=== PATIENT | female | born 1955 | race Caucasian/White ===

== ENCOUNTER 2016-09-05 05:36 | Inpatient (IN) | payer OTHER ==
[2016-08-31 19:59] LABS: BASOPHILS 0.3 %; BASOPHILS ABSOLUTE 0.02 10/3/uL (0.0-0.16); EOSINOPHILS 2.2 %; EOSINOPHILS ABSOLUTE 0.13 10/3/uL (0.0-0.53); HEMATOCRIT 35.9 % (36.0-48.0); HEMOGLOBIN 11.4 g/dL (12.0-16.0); LYMPHOCYTES 26.1 %; LYMPHOCYTES ABSOLUTE 1.57 10/3/uL (0.67-4.30); MEAN CORPUS HGB CONC 31.8 g/dL (32.0-36.0); MEAN CORPUSCULAR HEMOGLOB 26.3 pg (26.0-34.0); MEAN CORPUSCULAR VOLUME 82.7 fL (80-100); MEAN PLATELET VOLUME 11.1 fL (9.2-13.0); MONOCYTES 13.1 %; MONOCYTES ABSOLUTE 0.79 10/3/uL (0.21-1.20); NEUTROPHILS 58.3 %; PLATELET COUNT 397 10/3/uL (150-400); RBC DISTRIBUTION WIDTH 14.1 % (12.0-16.0); RED CELL COUNT 4.34 10/6/uL (4.0-5.6)
[2016-08-31 20:01] LABS: MANUAL DIFF NO %
[2016-08-31 20:12] LABS: BUN (BLOOD UREA NITROGEN) 12 MG/DL (6-23); CALCIUM, SERUM 9.5 MG/DL (8.5-10.4); CHLORIDE, SERUM 107 MMOL/L (96-112); CO2 (CARBON DIOXIDE) 28 MMOL/L (24-34); CREATININE 0.82 MG/DL (0.55-1.02); GFR AFRICAN AMERICAN 90 ML/MIN (>=60); GFR NON AFRICAN AMERICAN 77 ML/MIN (>=60); GLUCOSE, SERUM 82 MG/DL (60-99); POTASSIUM, SERUM 4.7 MMOL/L (3.5-5.3); SODIUM, SERUM 141 MMOL/L (135-148)
--- NOTE | ~2016-09-05 | DS ---
Discharge Summary [facility] [address] [place]. [address] NAME: REBECCA BURT : 55 STATUS : DIS IN PAT#: [id number] AGE: 61 ADM/REG DATE : 09/05/16 MR#: [id number] REPORT SERV DATE: 09/17/16 DICTATED BY: JOE NGUYỄN DATE: 09/16/16 REPORT STATUS : Draft TRANSCRIBED BY: AILYN DATE: 09/16/16 Data Collection from hospitalization DISCHARGE DIAGNOSIS(ES): 1. Large uterine mass, leiomyosarcoma. 2. Hypertension. 3. Hypothyroidism. 4. Gastroesophageal reflux disease. 5. Asthma. CONSULTATIONS: None. PROCEDURES PERFORMED: Initially laparoscopic converted to exploratory laparotomy with total abdominal hysterectomy; bilateral salpingo-oophorectomy with pelvic lymph node sampling with radical dissection for removal of tumor; extensive lysis of adhesions; omentectomy; suture of the rectosigmoid colon for removal of adhesions, 09/05/2016. PATHOLOGY: 1. Uterus with cervix and bilateral adnexa; hysterectomy with bilateral salpingectomy; leiomyosarcoma arising in the uterine corpus; omentum, subtotal omentectomy, focal reactive changes, no tumor seen. 2. Left pelvic lymph node excision, 0 of 1 node involved by tumor; rectosigmoid adhesions excision, leiomyosarcoma, invading into the subserosal soft tissue of the rectosigmoid. MEDICATIONS: Levothyroxine sodium 150 mcg daily, Toprol-XL 100 mg every morning, Prilosec 20 mg daily, MiraLAX powder one packet twice daily, Flonase one spray each nostril daily as needed, Mylicon 40 mg as needed, and [employer] 5/325 one every six hours as needed. CONDITION AT DISCHARGE: Upon discharge, she did appear to be doing well and had no complaints. DISPOSITION: She was discharged home to continue a regular diet with activity as tolerated. She was to follow up with me in the office on 09/19/2016, follow up with her primary care physician as needed. HOSPITAL COURSE: This 61-year-old female had pelvic pain and had been found to have a large pelvic mass. There was a question of whether it was a fibroid. She was admitted for surgery and further evaluation. Upon admission to the hospital, she had been taken to the operating room where she did undergo the above procedure. She tolerated this well and was transferred to the recovery room. On postop day #1, her pain was moderately controlled. She had no nausea or vomiting. Her vital signs were stable and she was afebrile. She did appear to be doing well postoperatively. Her [place] catheter was removed, and she was encouraged to ambulate. On postop day #2, her pain was under better control and she tolerated a clear liquid diet. Her hemoglobin was at 8.1, and her blood pressure was okay. Her abdomen was noted to be mildly distended and appropriately tender. She did appear to be doing well postoperatively. On postop day #3, she did continue to do well and was tolerating diet advancement well. She did undergo transfusion with two units of packed red blood cells secondary to anemia and did appear to be doing well following this. She was Discharge Summary [address] [place]. [address] NAME: REBECCA BURT : 55 STATUS : DIS IN PAT#: [id number] AGE: 61 ADM/REG DATE : 09/05/16 MR#: [id number] REPORT SERV DATE: 09/17/16 DICTATED BY: JOE NGUYỄN DATE: 09/16/16 REPORT STATUS : Draft TRANSCRIBED BY: MODL DATE: 09/16/16 continued on postoperative care. On postop day #4, she tolerated a full liquid diet without difficulty, and her BERTO drain was removed. Her diet was therefore advanced to a regular diet. She did remain in stable condition and was then discharged later that same day with the above instructions. Information collected by: [employer] I submit the above information as my discharge summary. SANNA/STEPHANIEL Joe Nguyễn M.D. / [id number] CC: Joey Delaney
--- NOTE | ~2016-09-05 | OP ---
Record Of Operation [facility] [address] [place]. [address] NAME: REBECCA BURT : 55 STATUS : ADM IN PAT#: [id number] AGE: 61 ADM/REG DATE : 09/05/16 MR#: [id number] REPORT SERV DATE: 09/06/16 DICTATED BY: JOE NGUYỄN DATE: 09/06/16 REPORT STATUS : Draft TRANSCRIBED BY: MODSarahi DATE: 09/06/16 DATE OF PROCEDURE: 09/05/2016 PREOPERATIVE DIAGNOSIS: Large abdominopelvic mass. POSTOPERATIVE DIAGNOSIS: Large uterine mass suspect leiomyosarcoma. PROCEDURES: 1. Initially laparoscopic converted to exploratory laparotomy with total abdominal hysterectomy, bilateral salpingo-oophorectomy with pelvic lymph node sampling, CPT code 72026, with radical dissection for removal of tumor. 2. Extensive lysis of adhesions, CPT code 69321. 3. Omentectomy, CPT code 12758. 4. Suture of the rectosigmoid colon for removal of adhesions. [employer]: Radha. ESTIMATED BLOOD LOSS: 2 L. FLUIDS: 3 L of crystalloid, 500 mL of albumin, and 3 units of packed red blood cells. COMPLICATIONS: None. FINDINGS AND INDICATIONS: This is a 61-year-old female who was brought to the operating room with a large solid abdominopelvic mass thought to be a fibroid. Intraoperatively, this mass appeared to be necrotic. Initially, a laparoscope was placed. Any manipulation of this mass caused bleeding. A decision was therefore made to proceed with exploratory laparotomy through a midline incision. The uterus was removed intact, although again during times of this procedure with manipulation of the uterus, portions of the tumor did fall off and were removed intra-abdominally. The mass was consistent with a necrotic mass. The mass was adherent to the rectosigmoid colon and omentum, and extensive lysis of adhesions was undertaken. All areas that were touching the mass were essentially removed. Portions of the mesentery of the rectosigmoid colon were excised and then sutured for hemostasis and a sub-gastric omentectomy was performed. The omentum was draped over the mass at the initial time of the procedure. At the completion of the procedure, all gross evidence of disease was removed. There was no evidence of disease in the remainder of the abdominal cavity. There was one enlarged lymph node noted at the bifurcation of the internal and external iliac on the left that was removed. PROCEDURE IN DETAIL: The patient was taken to the operating room, where she was placed in supine position for administration of general anesthesia. A JASMYN uterine manipulator was placed through the uterine cervix and out the fundus, and a ALTA ring was sutured to the patient's cervix. Our attention was then turned towards the anterior abdominal wall, where an incision was made approximately 27 cm above the pubic symphysis and taken down to the underlying layer of fascia. The fascia was grasped with two sutures of 0 Vicryl, tented up, and entered sharply. The peritoneum was then tented up and entered sharply. Then a Record Of Operation [address] [place]. [address] NAME: REBECCA BURT : 55 STATUS : ADM IN PAT#: [id number] AGE: 61 ADM/REG DATE : 09/05/16 MR#: [id number] REPORT SERV DATE: 09/06/16 DICTATED BY: JOE NGUYỄN DATE: 09/06/16 REPORT STATUS : Draft TRANSCRIBED BY: AILYN DATE: 09/06/16 laparoscope was placed. The abdominal cavity was insufflated. Two additional 8 mm trocars were placed, one additional 12 mm trocar was placed. The patient's abdominal cavity was explored via the laparoscopy and the above findings noted. With any manipulation, bleeding was noted, therefore a decision was made to proceed to laparotomy. Laparoscopic instruments were removed. A midline incision was made from above the umbilicus to the pubic symphysis and carried down to the underlying layer of fascia. The fascia was incised, rectus muscles , the peritoneum tented up and entered sharply. The peritoneal incision was extended superiorly and inferiorly with good visualization of the bowel and bladder. A Bookwalter retractor was placed into the incision and the bowel was packed with moist laparotomy sponges. Again, there was extensive adhesions of the omentum and the rectosigmoid colon. These adhesions were taken down with sharp dissection. The retroperitoneal spaces were opened via the round ligaments, which were grasped with bipolar cautery. The ureters were displaced laterally to avoid any injury and a radical pelvic dissection was performed to remove the tumor in total. The gonadal vessels were isolated. Hemoclips were placed to ensure long-term hemostasis. They were then grasped with two clamps, transected, and suture ligated using 0 Vicryl suture. The uterine arteries were identified at their origin and hemoclips were placed to ensure long-term hemostasis. They were then isolated at the level of the cervix, grasped with two curved Zeppelin clamps, transected, and suture ligated using 0 Vicryl. Anteriorly, a bladder flap was created and taken down to a level well below the cervix. Again, the ureters were visualized during the entire procedure and displaced laterally. The uterosacral cardinal complexes were then grasped with two straight Zeppelin clamps, transected, and suture ligated using 0 Vicryl suture. Additional lysis of adhesions was undertaken of the rectosigmoid colon and the vaginal cuff angles were then grasped with two curved Zeppelin clamps, and the uterus, cervix, and both ovaries were amputated and handed off the field with the above findings noted. The mesentery of the colon was then removed in total, which was touching the uterus to remove all evidence of gross adhesions of disease. This was then sutured using multiple sutures of 3-0 silk. The vaginal cuff was then closed with a running stitch of 0 Vicryl suture. Excellent hemostasis was assured. The pelvic lymph nodes were visualized and again on the left and enlarged lymph node was removed with sharp dissection and sent to Pathology and labeled appropriately. Using a combination of cautery and the LigaSure, a sub-colic omentectomy was performed again because the omentum was draped over the specimen. Both hemidiaphragms were visualized and palpated. The liver was also visualized and palpated. The spleen was visualized and palpated. The entire GI tract was run with no gross evidence of tumor in any of those areas. At the completion of the procedure, the abdominal cavity was irrigated with copious amounts of warm water. Evicel was placed onto the dissection bed to ensure long-term hemostasis. A BERTO drain was placed into the pelvis through one of the trocar sites. Both the 12 mm port and the initial port were closed with 0 Vicryl at the fascia, and the Bookwalter retractor was removed. The midline incision was closed with a running stitch of #1 PDS. The subcutaneous tissue was reapproximated using 2-0 Vicryl and skin was closed with a running subcuticular 4-0 Monocryl. At the completion of the procedure, the anesthesia was reversed. The patient was taken to the recovery room in stable condition. SD/MODL Record Of [facility] [address] [place] [address] NAME: REBECCA BURT : 55 STATUS : ADM IN [facility]#: [id number] AGE: 61 ADM/REG DATE : 09/05/16 MR#: [id number] REPORT SERV DATE: 09/06/16 DICTATED BY: JOE NGUYỄN DATE: 09/06/16 REPORT STATUS : Draft TRANSCRIBED BY: AILYN DATE: 09/06/16 Joe Nguyễn M.D. / [id number] CC: Joe Nguyễn M.D.
[~2016-09-05 05:36] MED LIST: FLONASE NAS; LEVOTHYROXIN150 MCG PO; MYLICON 40 MG T40 MG PO; NORCO1 TA1 PO; PRILOSEC OTC20 MG PO; TOPXL100 PO
[2016-09-05 15:53] LABS: BASOPHILS 0.1 %; BASOPHILS ABSOLUTE 0.01 10/3/uL (0.0-0.16); EOSINOPHILS 0 %; HEMATOCRIT 34.8 % (36.0-48.0); HEMOGLOBIN 11.8 g/dL (12.0-16.0); IMMATURE GRANULOCYTES 0.4 %; IMMATURE GRANULOCYTES ABSOLUTE 0.07 10/3/uL (0.0-0.11); LYMPHOCYTES 4.3 %; LYMPHOCYTES ABSOLUTE 0.79 10/3/uL (0.67-4.30); MEAN CORPUSCULAR VOLUME 82.7 fL (80-100); MEAN PLATELET VOLUME 10.9 fL (9.2-13.0); MONOCYTES 7.8 %; MONOCYTES ABSOLUTE 1.42 10/3/uL (0.21-1.20); NEUTROPHILS 87.4 %; PLATELET COUNT 328 10/3/uL (150-400); RBC DISTRIBUTION WIDTH 14.5 % (12.0-16.0); RED CELL COUNT 4.21 10/6/uL (4.0-5.6)
[2016-09-05 15:55] LABS: MANUAL DIFF NO %; MEAN CORPUS HGB CONC 33.9 g/dL (32.0-36.0); WHITE BLOOD CELLS 18.3 10/3/uL (4.5-10.5)
[2016-09-05 16:03] LABS: INTERNATIONAL NORMAL RATI 1.3 UNITS (-); PROTIME (NOT ORD) 16.4 SEC (12.0-14.5)
[2016-09-05 16:04] LABS: BUN (BLOOD UREA NITROGEN) 12 MG/DL (6-23); CHLORIDE, SERUM 110 MMOL/L (96-112); CREATININE 0.86 MG/DL (0.55-1.02); GFR AFRICAN AMERICAN 85 ML/MIN (>=60); GFR NON AFRICAN AMERICAN 73 ML/MIN (>=60); POTASSIUM, SERUM 4.1 MMOL/L (3.5-5.3); SODIUM, SERUM 136 MMOL/L (135-148)
[2016-09-05 16:05] LABS: CALCIUM, SERUM 8.2 MG/DL (8.5-10.4); CO2 (CARBON DIOXIDE) 21 MMOL/L (24-34); GLUCOSE, SERUM 165 MG/DL (60-99)
[2016-09-06 04:31] LABS: INTERNATIONAL NORMAL RATI 1.3 UNITS (-); PROTIME (NOT ORD) 15.8 SEC (12.0-14.5)
[2016-09-06 04:36] LABS: BUN (BLOOD UREA NITROGEN) 10 MG/DL (6-23); CALCIUM, SERUM 8.1 MG/DL (8.5-10.4); CHLORIDE, SERUM 108 MMOL/L (96-112); CO2 (CARBON DIOXIDE) 25 MMOL/L (24-34); CREATININE 0.86 MG/DL (0.55-1.02); GFR AFRICAN AMERICAN 85 ML/MIN (>=60); GFR NON AFRICAN AMERICAN 73 ML/MIN (>=60); GLUCOSE, SERUM 127 MG/DL (60-99); POTASSIUM, SERUM 4.6 MMOL/L (3.5-5.3); SODIUM, SERUM 134 MMOL/L (135-148)
[2016-09-06 05:21] LABS: BASOPHILS 0.1 %; BASOPHILS ABSOLUTE 0.01 10/3/uL (0.0-0.16); EOSINOPHILS 0.1 %; EOSINOPHILS ABSOLUTE 0.01 10/3/uL (0.0-0.53); HEMOGLOBIN 10.7 g/dL (12.0-16.0); IMMATURE GRANULOCYTES 0.3 %; IMMATURE GRANULOCYTES ABSOLUTE 0.04 10/3/uL (0.0-0.11); LYMPHOCYTES 11.8 %; LYMPHOCYTES ABSOLUTE 1.79 10/3/uL (0.67-4.30); MEAN CORPUS HGB CONC 34.9 g/dL (32.0-36.0); MEAN CORPUSCULAR HEMOGLOB 28.6 pg (26.0-34.0); MEAN CORPUSCULAR VOLUME 82.1 fL (80-100); MEAN PLATELET VOLUME 10.9 fL (9.2-13.0); MONOCYTES ABSOLUTE 1.81 10/3/uL (0.21-1.20); NEUTROPHILS 75.7 %; NEUTROPHILS ABSOLUTE 11.48 10/3/uL (2.02-8.40); PLATELET COUNT 324 10/3/uL (150-400); RBC DISTRIBUTION WIDTH 14.3 % (12.0-16.0); RED CELL COUNT 3.74 10/6/uL (4.0-5.6); WHITE BLOOD CELLS 15.1 10/3/uL (4.5-10.5)
[2016-09-06 05:23] LABS: HEMATOCRIT 30.7 % (36.0-48.0); MANUAL DIFF NO %
[2016-09-06 14:39] LABS: BASOPHILS 0.2 %; BASOPHILS ABSOLUTE 0.03 10/3/uL (0.0-0.16); EOSINOPHILS 0.3 %; EOSINOPHILS ABSOLUTE 0.04 10/3/uL (0.0-0.53); HEMATOCRIT 27.8 % (36.0-48.0); HEMOGLOBIN 9.5 g/dL (12.0-16.0); IMMATURE GRANULOCYTES 0.3 %; IMMATURE GRANULOCYTES ABSOLUTE 0.05 10/3/uL (0.0-0.11); LYMPHOCYTES 10.7 %; LYMPHOCYTES ABSOLUTE 1.55 10/3/uL (0.67-4.30); MEAN CORPUS HGB CONC 34.2 g/dL (32.0-36.0); MEAN CORPUSCULAR HEMOGLOB 28.1 pg (26.0-34.0); MEAN CORPUSCULAR VOLUME 82.2 fL (80-100); MEAN PLATELET VOLUME 10.7 fL (9.2-13.0); MONOCYTES ABSOLUTE 1.45 10/3/uL (0.21-1.20); NEUTROPHILS 78.5 %; NEUTROPHILS ABSOLUTE 11.38 10/3/uL (2.02-8.40); PLATELET COUNT 286 10/3/uL (150-400); RBC DISTRIBUTION WIDTH 14.6 % (12.0-16.0); RED CELL COUNT 3.38 10/6/uL (4.0-5.6); WHITE BLOOD CELLS 14.5 10/3/uL (4.5-10.5)
[2016-09-06 14:41] LABS: MANUAL DIFF NO %
[2016-09-07 04:08] LABS: BASOPHILS 0.2 %; BASOPHILS ABSOLUTE 0.02 10/3/uL (0.0-0.16); EOSINOPHILS 1.7 %; EOSINOPHILS ABSOLUTE 0.17 10/3/uL (0.0-0.53); HEMOGLOBIN 8.1 g/dL (12.0-16.0); IMMATURE GRANULOCYTES 0.3 %; IMMATURE GRANULOCYTES ABSOLUTE 0.03 10/3/uL (0.0-0.11); MANUAL DIFF NO %; MEAN CORPUS HGB CONC 33.8 g/dL (32.0-36.0); MEAN CORPUSCULAR HEMOGLOB 28.1 pg (26.0-34.0); MEAN CORPUSCULAR VOLUME 83.3 fL (80-100); MEAN PLATELET VOLUME 10.5 fL (9.2-13.0); MONOCYTES 10.9 %; MONOCYTES ABSOLUTE 1.09 10/3/uL (0.21-1.20); NEUTROPHILS 74.9 %; PLATELET COUNT 255 10/3/uL (150-400); RBC DISTRIBUTION WIDTH 14.7 % (12.0-16.0); RED CELL COUNT 2.88 10/6/uL (4.0-5.6)
[2016-09-08 06:21] LABS: BASOPHILS 0.1 %; BASOPHILS ABSOLUTE 0.01 10/3/uL (0.0-0.16); EOSINOPHILS 3.8 %; EOSINOPHILS ABSOLUTE 0.33 10/3/uL (0.0-0.53); IMMATURE GRANULOCYTES 0.2 %; IMMATURE GRANULOCYTES ABSOLUTE 0.02 10/3/uL (0.0-0.11); LYMPHOCYTES 11.6 %; LYMPHOCYTES ABSOLUTE 1.01 10/3/uL (0.67-4.30); MEAN CORPUS HGB CONC 34.4 g/dL (32.0-36.0); MEAN CORPUSCULAR HEMOGLOB 28.7 pg (26.0-34.0); MEAN CORPUSCULAR VOLUME 83.4 fL (80-100); MEAN PLATELET VOLUME 10.4 fL (9.2-13.0); MONOCYTES 9.4 %; MONOCYTES ABSOLUTE 0.82 10/3/uL (0.21-1.20); NEUTROPHILS 74.9 %; NEUTROPHILS ABSOLUTE 6.55 10/3/uL (2.02-8.40); PLATELET COUNT 250 10/3/uL (150-400); RBC DISTRIBUTION WIDTH 14.8 % (12.0-16.0); WHITE BLOOD CELLS 8.7 10/3/uL (4.5-10.5)
[2016-09-08 06:22] LABS: HEMATOCRIT 31.7 % (36.0-48.0); HEMOGLOBIN 10.9 g/dL (12.0-16.0)
[2016-09-08 06:23] LABS: MANUAL DIFF NO %
[2016-09-08 06:37] LABS: CALCIUM, SERUM 8.2 MG/DL (8.5-10.4); CHLORIDE, SERUM 108 MMOL/L (96-112); CO2 (CARBON DIOXIDE) 23 MMOL/L (24-34); CREATININE 0.69 MG/DL (0.55-1.02); GFR AFRICAN AMERICAN 109 ML/MIN (>=60); GFR NON AFRICAN AMERICAN 94 ML/MIN (>=60); SODIUM, SERUM 135 MMOL/L (135-148)
[2016-09-08 06:42] LABS: BUN (BLOOD UREA NITROGEN) 5 MG/DL (6-23); GLUCOSE, SERUM 83 MG/DL (60-99); POTASSIUM, SERUM 3.5 MMOL/L (3.5-5.3)
[2016-09-08 06:54] LABS: PLATELET ESTIMATE ADQ (ADEQUATE); RBC MORPHOLOGY NORM (NORMAL)
[2016-09-09 04:59] LABS: BASOPHILS 0.1 %; BASOPHILS ABSOLUTE 0.01 10/3/uL (0.0-0.16); EOSINOPHILS 5.2 %; HEMATOCRIT 29.4 % (36.0-48.0); HEMOGLOBIN 10.2 g/dL (12.0-16.0); IMMATURE GRANULOCYTES 0.3 %; IMMATURE GRANULOCYTES ABSOLUTE 0.02 10/3/uL (0.0-0.11); LYMPHOCYTES 12.7 %; LYMPHOCYTES ABSOLUTE 0.97 10/3/uL (0.67-4.30); MEAN CORPUS HGB CONC 34.7 g/dL (32.0-36.0); MEAN CORPUSCULAR HEMOGLOB 28.7 pg (26.0-34.0); MEAN CORPUSCULAR VOLUME 82.6 fL (80-100); MEAN PLATELET VOLUME 10.1 fL (9.2-13.0); MONOCYTES 9.2 %; NEUTROPHILS 72.5 %; NEUTROPHILS ABSOLUTE 5.54 10/3/uL (2.02-8.40); PLATELET COUNT 275 10/3/uL (150-400); RBC DISTRIBUTION WIDTH 14.6 % (12.0-16.0); RED CELL COUNT 3.56 10/6/uL (4.0-5.6); WHITE BLOOD CELLS 7.6 10/3/uL (4.5-10.5)
[2016-09-09 05:01] LABS: MANUAL DIFF NO %
[2016-09-09] MEDS ORDERED: MIRALAX POWDER1 PKT PO (09:16)
[2016-09-09] MEDS ORDERED: ZOFRAN8 PO (09:17)
[2016-09-09] MEDS ORDERED: PCET PO (09:18)
== END 2016-09-09 13:10 | disposition home or self-care (01) | DRG 741 ==
LOC: SDC 05:36 → SDC/OF 12:51 → 4EA 14:21
PROVIDERS: Nurse Practitioner Family; Obstetrics & Gynecology Gynecologic Oncology; Obstetrics & Gynecology Gynecology
PROC: 0UT20ZZ Resection of Bilateral Ovaries, Open Approach (ICD-10-PCS; 2016-09-05)
PROC: 0UN40ZZ Release Uterine Supporting Structure, Open Approach (ICD-10-PCS; 2016-09-05)
PROC: 0DBT0ZZ (ICD-10-PCS; 2016-09-05)
PROC: 0UT90ZZ Resection of Uterus, Open Approach (ICD-10-PCS; principal; 2016-09-05 07:00)
PROC: 0UJD4ZZ Inspection of Uterus and Cervix, Percutaneous Endoscopic Approach (ICD-10-PCS; 2016-09-05 07:00)
PROC: 0UT70ZZ Resection of Bilateral Fallopian Tubes, Open Approach (ICD-10-PCS; 2016-09-05 07:00)
DX: C55 Malignant neoplasm of uterus, part unspecified (principal); I10 Essential (primary) hypertension; E03.9 Hypothyroidism, unspecified; J45.909 Unspecified asthma, uncomplicated; K58.9 Irritable bowel syndrome, unspecified
CPT/HCPCS: 36415; 71020-PO; 80048; 85025; 85610; 86850; 86900; 86901; 86920; 88305; 88307; 88309; 88331; 88341; 88342; 93005; A9270-GY; J0694; J1200; J2250; J2270; J2370; J2405; J2710; J2795; J3010; P9016; P9045